=== PATIENT | male | born 1985 | race Caucasian/White ===

== ENCOUNTER 2018-01-21 12:24 | Emergency (ER) | payer OTHER ==
[~2018-01-21] VITALS: Ht 190.5 cm; Wt 86.2 kg
[~2018-01-21 12:24] MED LIST: ALBU90OI INH; AMOX500 PO; Allegra-D 24 H1 EACH PO; Augmentin 875-1 EACH PO; Bactrim Ds Tab1 EACH PO; CARB200ER PO; CEPH500 PO; CYCL10 PO; DIVA500EC PO; Flonase 0.05% N16 GM; HYDACE5 PO; IBUP800 PO; LORA1 PO; Monodox100 MG PO; NAPR500 PO; OXYACE5T PO; PENVK500 PO; PHENY100ER PO; SPACE CHAMBER1 EACH MC; SULTRIDS PO; SULTRISS PO
[2018-01-21] MEDS ORDERED: Zithromax250 MG PO (13:01)
[2018-01-21] MEDS ORDERED: ALBU90OI INH (13:01)
== END 2018-01-21 13:12 | disposition home or self-care (01) ==
LOC: ER 12:24
DX: J02.9 Acute pharyngitis, unspecified (principal); F17.210 Nicotine dependence, cigarettes, uncomplicated; Z79.899 Other long term (current) drug therapy
CPT/HCPCS: 71046; 87081; 87430; 96374; 99283; J1100

== ENCOUNTER 2018-02-02 20:28 | Emergency (ER) | payer OTHER ==
[~2018-02-02] VITALS: Ht 193 cm; Wt 86.2 kg
[~2018-02-02 20:28] MED LIST changes: +Zithromax250 MG PO
[2018-02-02] MEDS ORDERED: Sudogest60 MG PO (21:38)
[2018-02-02] MEDS ORDERED: TUSSIN DM COUG118 ML PO (21:38)
[2018-02-02] MEDS ORDERED: ALBU90OI INH (21:38)
== END 2018-02-02 21:50 | disposition home or self-care (01) ==
LOC: ER 20:28
DX: J02.9 Acute pharyngitis, unspecified (principal); F17.210 Nicotine dependence, cigarettes, uncomplicated
CPT/HCPCS: 71046; 99283

== ENCOUNTER 2018-03-23 12:44 | Emergency (ER) | payer OTHER ==
[~2018-03-23] VITALS: Ht 193 cm; Wt 83.9 kg
[~2018-03-23 12:44] MED LIST changes: +Sudogest60 MG PO; +TUSSIN DM COUG118 ML PO
== END 2018-03-23 13:34 | disposition home or self-care (01) ==
LOC: ER 12:44
DX: J02.9 Acute pharyngitis, unspecified (principal); F17.200 Nicotine dependence, unspecified, uncomplicated; G43.909 Migraine, unspecified, not intractable, without status migrainosus
CPT/HCPCS: 87081; 87430; 99283

== ENCOUNTER 2018-05-31 11:53 | Emergency (ER) | payer OTHER ==
[~2018-05-31] VITALS: Ht 193 cm; Wt 81.7 kg
[2018-05-31] MEDS ORDERED: Bactrim Ds Tab1 EACH PO (12:57)
== END 2018-05-31 13:03 | disposition home or self-care (01) ==
LOC: ER 11:53
DX: L08.9 Local infection of the skin and subcutaneous tissue, unspecified (principal); Z23 Encounter for immunization; F17.200 Nicotine dependence, unspecified, uncomplicated
CPT/HCPCS: 90471; 90714; 99282-25

== ENCOUNTER 2018-08-19 23:06 | Emergency (ER) | payer OTHER ==
[~2018-08-19] VITALS: Ht 190.5 cm; Wt 86.2 kg
[~2018-08-19 23:06] MED LIST changes: +IBUP400 PO
[2018-08-20 00:26] LABS: Source, Urine Clean Catch
[2018-08-20 00:28] LABS: Bilirubin, Urine Neg (Neg); Blood, Urine Neg (Neg); Glucose Qualitative, Urine Neg (Neg); Ketones, Urine Neg (Neg); Leukocyte Esterase, Urine Neg (Neg); Nitrite, Urine Neg (Neg); Protein, Urine Neg (Neg); Urobilinogen, Urine NORM (Normal)
[2018-08-20 00:32] LABS: Appearance, Urine Clear (Clear); Color, Urine Yellow (P-Yellow)
[2018-08-20 00:39] LABS: U Amphetamine Screen Not Detected; U Barbituate Screen Not Detected; U Benzodiazapine Screen Not Detected; U Buprenorphine Screen Not Detected; U Cannabinoids Screen DETECTED; U Cocaine Screen Not Detected; U Methadone Screen Not Detected; U Methamphetamine Screen Not Detected; U Opiates Screen Not Detected; U Oxycodone Screen Not Detected; U Phencyclidine Screen Not Detected; U Propoxyphene Screen Not Detected
[2018-08-20 00:50] LABS: BASOPHILS ABSOLUTE AUTO 0.03 K/mm3 (0.00-0.23); BASOPHILS PERCENT AUTO 0 % (0-2); EOSINOPHILS ABSOLUTE AUTO 0.19 K/mm3 (0.00-0.68); EOSINOPHILS PERCENT AUTO 3 % (0-6); Hematocrit 40.9 % (37.0-53.0); Hemoglobin 13.6 g/dL (13.5-17.5); IMMATURE GRAN ABSOLUTE AUTO 0.01 K/mm3 (0.00-0.10); IMMATURE GRAN PERCENT AUTO 0 % (0-1); LYMPHOCYTES ABSOLUTE AUTO 4.85 K/mm3 (0.84-5.20); LYMPHOCYTES PERCENT AUTO 65 % (21-46); MONOCYTES ABSOLUTE AUTO 0.92 K/mm3 (0.16-1.47); MONOCYTES PERCENT AUTO 12 % (4-13); Mean Corpuscular HGB 29.4 pg (26.0-34.0); Mean Corpuscular HGB Conc 33.3 g/dL (31.5-36.5); Mean Corpuscular Volume 88 fL (80-100); Mean Platelet Volume 10.2 fL (9.1-12.4); NEUTROPHILS ABSOLUTE AUTO 1.43 K/mm3 (1.96-9.15); NEUTROPHILS PERCENT AUTO 19 % (41-73); Platelet Count 260 K/mm3 (150-400); RDW Coefficient Variation 13.8 % (11.7-14.2); RDW Standard Deviation 44.8 fL (35.1-46.3); Red Blood Cell Count 4.63 M/mm3 (4.30-5.90); White Blood Cell Count 7.43 K/mm3 (4.00-11.30)
[2018-08-20 01:14] LABS: Alanine Aminotransfer (ALT/SGP 235 U/L (12-78); Albumin, Blood 3.8 g/dL (3.4-5.0); Albumin/Globulin Ratio 0.9 (0.8-1.8); Alk Phos 94 U/L (50-136); Anion Gap 6 mmol/L (6-16); Aspartate Aminotrans (AST/SGOT 140 U/L (12-37); Bilirubin, Total 0.5 mg/dL (0.1-1.0); Blood Urea Nitrogen 17 mg/dL (8-24); CO2, Blood 28 mmol/L (21-32); Calcium, Blood 8.6 mg/dL (8.5-10.1); Chloride, Blood 106 mmol/L (98-108); Creatinine, Blood 1.06 mg/dL (0.60-1.20); Ethanol (Alcohol), Blood, Med <3 mg/dL; Globulin, Blood 4.3 g/dL (2.2-4.0); Glomerular Filtration Rate >60 (60-); Glucose, Blood 87 mg/dL (70-99); Potassium, Blood 4.2 mmol/L (3.5-5.5); Salicylate 2.5 mg/dL (2.8-20.0); Sodium, Blood 140 mmol/L (136-145); Thyroxine (T4) 13.6 ug/dL (4.5-12.1); Total Protein, Blood 8.1 g/dL (6.4-8.2)
[2018-08-20 01:19] LABS: Acetaminophen, Random <2.0 ug/mL (10.0-30.0)
== END 2018-08-20 02:31 | disposition home or self-care (01) ==
LOC: ER 23:06
PROVIDERS: Emergency Medicine
DX: F23 Brief psychotic disorder (principal); G40.909 Epilepsy, unspecified, not intractable, without status epilepticus; F17.200 Nicotine dependence, unspecified, uncomplicated
CPT/HCPCS: 36415; 80053; 81003; 84436; 84443; 85025; 99284; G0480

== ENCOUNTER → 2019-01-02 | Outpatient (CLI) | payer OTHER | END | disposition home or self-care (01) | LOC: LAB SHORT 18:54 → LAB 18:54 | DX: L03.90 Cellulitis, unspecified (principal) | CPT/HCPCS: 87070; 87075; 87147; 87205 ==

== ENCOUNTER 2019-03-23 16:29 | Emergency (ER) | payer OTHER ==
[~2019-03-23] VITALS: Ht 193 cm; Wt 81.7 kg
[2019-03-23] MEDS ORDERED: CEPH500 PO (17:44)
[2019-03-23] MEDS ORDERED: Bactrim Ds Tab1 EACH PO (17:44)
== END 2019-03-23 18:05 | disposition home or self-care (01) ==
LOC: ER 16:29
DX: L02.415 Cutaneous abscess of right lower limb (principal); F17.200 Nicotine dependence, unspecified, uncomplicated; Z91.048 Other nonmedicinal substance allergy status
CPT/HCPCS: 99282

== ENCOUNTER 2019-03-30 10:50 | Emergency (ER) | payer OTHER ==
[~2019-03-30] VITALS: Ht 193 cm; Wt 85.3 kg
[2019-03-31] MEDS ORDERED: Bactrim Ds Tab1 EACH PO (20:31)
[2019-03-31] MEDS ORDERED: CEPH500 PO (20:31)
== END 2019-03-30 12:25 | disposition home or self-care (01) ==
LOC: ER 10:50
DX: F60.0 Paranoid personality disorder (principal); G40.909 Epilepsy, unspecified, not intractable, without status epilepticus; F17.200 Nicotine dependence, unspecified, uncomplicated
CPT/HCPCS: 99284

== ENCOUNTER 2019-03-30 20:28 | Emergency (ER) | payer OTHER ==
[~2019-03-30] VITALS: Ht 190.5 cm; Wt 81.7 kg
[2019-03-31] MEDS ORDERED: CEPH500 PO (20:31)
[2019-03-31] MEDS ORDERED: Bactrim Ds Tab1 EACH PO (20:31)
== END 2019-03-30 21:30 | disposition home or self-care (01) ==
LOC: ER 20:28
DX: L03.115 Cellulitis of right lower limb (principal); F15.129 Other stimulant abuse with intoxication, unspecified; F17.200 Nicotine dependence, unspecified, uncomplicated; Z91.048 Other nonmedicinal substance allergy status
CPT/HCPCS: 99283

== ENCOUNTER 2019-03-31 19:31 | Emergency (ER) | payer OTHER ==
[~2019-03-31] VITALS: Ht 193 cm; Wt 81.7 kg
[2019-03-31] MEDS ORDERED: Bactrim Ds Tab1 EACH PO (20:31)
[2019-03-31] MEDS ORDERED: CEPH500 PO (20:31)
== END 2019-03-31 20:45 | disposition home or self-care (01) ==
LOC: ER 19:31
DX: L03.115 Cellulitis of right lower limb (principal); L02.415 Cutaneous abscess of right lower limb; Z76.0 Encounter for issue of repeat prescription; F41.9 Anxiety disorder, unspecified; F17.200 Nicotine dependence, unspecified, uncomplicated; Z88.8 Allergy status to other drugs, medicaments and biological substances; Z91.048 Other nonmedicinal substance allergy status
CPT/HCPCS: 99283

== ENCOUNTER 2019-04-05 22:25 | Emergency (ER) | payer OTHER ==
[~2019-04-05] VITALS: Ht 193 cm; Wt 81.7 kg
== END 2019-04-06 00:19 | disposition home or self-care (01) ==
LOC: ER 22:25
DX: F15.10 Other stimulant abuse, uncomplicated (principal); Z59.0 Homelessness; G40.909 Epilepsy, unspecified, not intractable, without status epilepticus; F17.210 Nicotine dependence, cigarettes, uncomplicated
CPT/HCPCS: 99282

== ENCOUNTER 2019-06-01 18:14 | Emergency (ER) | payer OTHER ==
[~2019-06-01] VITALS: Ht 193 cm; Wt 81.7 kg
[2019-06-01 18:54] LABS: BASOPHILS ABSOLUTE AUTO 0.03 K/mm3 (0.00-0.23); BASOPHILS PERCENT AUTO 0 % (0-2); EOSINOPHILS ABSOLUTE AUTO 0.66 K/mm3 (0.00-0.68); EOSINOPHILS PERCENT AUTO 10 % (0-6); Hematocrit 41.4 % (37.0-53.0); Hemoglobin 13.9 g/dL (13.5-17.5); IMMATURE GRAN ABSOLUTE AUTO 0.01 K/mm3 (0.00-0.10); IMMATURE GRAN PERCENT AUTO 0 % (0-1); LYMPHOCYTES ABSOLUTE AUTO 3.03 K/mm3 (0.84-5.20); LYMPHOCYTES PERCENT AUTO 45 % (21-46); MONOCYTES ABSOLUTE AUTO 0.76 K/mm3 (0.16-1.47); MONOCYTES PERCENT AUTO 11 % (4-13); Mean Corpuscular HGB 30.8 pg (26.0-34.0); Mean Corpuscular HGB Conc 33.6 g/dL (31.5-36.5); Mean Corpuscular Volume 92 fL (80-100); Mean Platelet Volume 9.5 fL (9.1-12.4); NEUTROPHILS PERCENT AUTO 33 % (41-73); Platelet Count 270 K/mm3 (150-400); RDW Coefficient Variation 13.1 % (11.7-14.2); RDW Standard Deviation 44.5 fL (35.1-46.3); Red Blood Cell Count 4.52 M/mm3 (4.30-5.90); White Blood Cell Count 6.69 K/mm3 (4.00-11.30)
[2019-06-01 19:15] LABS: Alanine Aminotransfer (ALT/SGP 300 U/L (12-78); Albumin, Blood 3.6 g/dL (3.4-5.0); Albumin/Globulin Ratio 0.8 (0.8-1.8); Alk Phos 111 U/L (50-136); Anion Gap 6 mmol/L (6-16); Aspartate Aminotrans (AST/SGOT 200 U/L (12-37); Bilirubin, Total 0.4 mg/dL (0.1-1.0); Blood Urea Nitrogen 22 mg/dL (8-24); Bun/Creatinine Ratio 32.2 (12.0-20.0); CO2, Blood 26 mmol/L (21-32); Calcium, Blood 8.4 mg/dL (8.5-10.1); Chloride, Blood 107 mmol/L (98-108); Creatinine, Blood 0.68 mg/dL (0.60-1.20); Globulin, Blood 4.4 g/dL (2.2-4.0); Glomerular Filtration Rate >60 (60-); Glucose, Blood 108 mg/dL (70-99); Sodium, Blood 139 mmol/L (136-145)
== END 2019-06-01 21:48 | disposition home or self-care (01) ==
LOC: ER 18:14
PROVIDERS: Emergency Medicine
DX: R51 Headache (principal); F17.200 Nicotine dependence, unspecified, uncomplicated; Z91.048 Other nonmedicinal substance allergy status
CPT/HCPCS: 36415; 80053; 83690; 85025; 99284; A9270

== ENCOUNTER 2019-08-13 13:23 | Emergency (ER) | payer OTHER ==
[~2019-08-13] VITALS: Ht 193 cm; Wt 81.7 kg
[2019-08-13] MEDS ORDERED: CEPH500 PO (14:17)
[2019-08-13] MEDS ORDERED: Bactrim Ds Tab1 EACH PO (14:17)
== END 2019-08-13 14:37 | disposition home or self-care (01) ==
LOC: ER 13:23
DX: L03.011 Cellulitis of right finger (principal); F17.200 Nicotine dependence, unspecified, uncomplicated; Z91.09 Other allergy status, other than to drugs and biological substances
CPT/HCPCS: 99283

== ENCOUNTER 2020-02-09 01:21 | Emergency (ER) | payer OTHER ==
[~2020-02-09 01:21] MED LIST changes: +LEVE500 PO
[2020-02-09] MEDS ORDERED: Doxycycline Mo100 M1 PO (02:50)
[2020-02-18] MEDS ORDERED: AMOCLA875 PO (16:35)
[2020-02-18] MEDS ORDERED: IBUP800 PO (16:35)
== END 2020-02-09 01:52 | disposition left against medical advice (07) ==
LOC: ER 01:21
DX: Z53.21 Procedure and treatment not carried out due to patient leaving prior to being seen by health care provider (principal)

== ENCOUNTER 2020-02-09 02:21 | Emergency (ER) | payer OTHER ==
[~2020-02-09] VITALS: Ht 193 cm; Wt 81.7 kg
[2020-02-09] MEDS ORDERED: Doxycycline Mo100 M1 PO (02:50)
[2020-02-18] MEDS ORDERED: AMOCLA875 PO (16:35)
[2020-02-18] MEDS ORDERED: IBUP800 PO (16:35)
== END 2020-02-09 03:05 | disposition home or self-care (01) ==
LOC: ER 02:21
DX: K13.0 Diseases of lips (principal); F17.200 Nicotine dependence, unspecified, uncomplicated
CPT/HCPCS: 99283

== ENCOUNTER 2020-03-03 09:02 | Emergency (ER) | payer OTHER ==
[~2020-03-03] VITALS: Ht 190.5 cm; Wt 81.7 kg
[~2020-03-03 09:02] MED LIST changes: +AMOCLA875 PO; +Doxycycline Mo100 M1 PO
== END 2020-03-03 11:06 | disposition home or self-care (01) ==
LOC: ER 09:02
DX: S51.812D Laceration without foreign body of left forearm, subsequent encounter (principal); S51.811D Laceration without foreign body of right forearm, subsequent encounter; Z91.048 Other nonmedicinal substance allergy status; F17.200 Nicotine dependence, unspecified, uncomplicated

== ENCOUNTER 2020-04-14 11:48 | Emergency (ER) | payer OTHER ==
[~2020-04-14] VITALS: Ht 193 cm; Wt 81.7 kg
[2020-04-14] MEDS ORDERED: CEPH500 PO (12:31)
[2020-04-14] MEDS ORDERED: Mupirocin22 GM TOP (12:31)
[2020-04-14] MEDS ORDERED: Bactrim Ds Tab1 EACH PO (12:31)
== END 2020-04-14 12:39 | disposition home or self-care (01) ==
LOC: ER 11:48
DX: T23.161A Burn of first degree of back of right hand, initial encounter (principal); L03.113 Cellulitis of right upper limb; F17.210 Nicotine dependence, cigarettes, uncomplicated; X10.2XXA Contact with fats and cooking oils, initial encounter
CPT/HCPCS: 10060; 87070; 87075; 87147; 87205; 99283-25; A9270-GY

== ENCOUNTER 2020-04-28 14:40 | Emergency (ER) | payer OTHER ==
[~2020-04-28] VITALS: Ht 193 cm; Wt 81.7 kg
[~2020-04-28 14:40] MED LIST changes: +Mupirocin22 GM TOP
[2020-04-28] MEDS ORDERED: Bactrim Ds Tab1 EACH PO (15:00)
[2020-04-28] MEDS ORDERED: CEPH500 PO (15:00)
== END 2020-04-28 15:28 | disposition home or self-care (01) ==
LOC: ER 14:40
DX: L08.9 Local infection of the skin and subcutaneous tissue, unspecified (principal); F17.290 Nicotine dependence, other tobacco product, uncomplicated
CPT/HCPCS: 99283

== ENCOUNTER 2020-06-25 12:03 | Emergency (ER) | payer OTHER ==
[~2020-06-25] VITALS: Ht 190.5 cm; Wt 81.7 kg
[2020-06-25] MEDS ORDERED: CEPH500 PO (14:08)
[2020-06-25] MEDS ORDERED: IBUP600 PO (14:08)
[2020-06-25] MEDS ORDERED: Bactrim Ds Tab1 EACH PO (14:08)
== END 2020-06-25 14:30 | disposition home or self-care (01) ==
LOC: ER 12:03
DX: J34.0 Abscess, furuncle and carbuncle of nose (principal); F17.210 Nicotine dependence, cigarettes, uncomplicated
CPT/HCPCS: 99283

== ENCOUNTER 2020-08-28 03:15 | Emergency (ER) | payer OTHER ==
[~2020-08-28] VITALS: Ht 193 cm; Wt 81.7 kg
[~2020-08-28 03:15] MED LIST changes: +IBUP600 PO; +MULTI-VITAMIN1 EAC2 PO
== END 2020-08-28 04:57 | disposition home or self-care (01) ==
LOC: ER 03:15
DX: L03.211 Cellulitis of face (principal); K12.0 Recurrent oral aphthae; F17.200 Nicotine dependence, unspecified, uncomplicated
CPT/HCPCS: 99283; A9270

== ENCOUNTER 2020-09-08 09:29 | Emergency (ER) | payer OTHER ==
[~2020-09-08] VITALS: Ht 193 cm; Wt 81.7 kg
== END 2020-09-08 10:00 | disposition home or self-care (01) ==
LOC: ER 09:29
DX: S00.511A Abrasion of lip, initial encounter (principal); F17.210 Nicotine dependence, cigarettes, uncomplicated; X58.XXXA Exposure to other specified factors, initial encounter
CPT/HCPCS: 99282

== ENCOUNTER 2020-09-13 14:48 | Inpatient (IN) | payer OTHER ==
[~2020-09-13] VITALS: Ht 193 cm; Wt 75.8 kg
[2020-09-13 16:08] LABS: BASOPHILS ABSOLUTE AUTO 0.02 K/mm3 (0.00-0.23); BASOPHILS PERCENT AUTO 0 % (0-2); EOSINOPHILS PERCENT AUTO 0 % (0-6); Hemoglobin 12.9 g/dL (13.5-17.5); IMMATURE GRAN ABSOLUTE AUTO 0.08 K/mm3 (0.00-0.10); IMMATURE GRAN PERCENT AUTO 0 % (0-1); LYMPHOCYTES ABSOLUTE AUTO 2.39 K/mm3 (0.84-5.20); LYMPHOCYTES PERCENT AUTO 12 % (21-46); MONOCYTES ABSOLUTE AUTO 1.51 K/mm3 (0.16-1.47); MONOCYTES PERCENT AUTO 8 % (4-13); Mean Corpuscular HGB 29.9 pg (26.0-34.0); Mean Corpuscular HGB Conc 34.9 g/dL (31.5-36.5); Mean Corpuscular Volume 86 fL (80-100); Mean Platelet Volume 9.6 fL (9.1-12.4); NEUTROPHILS ABSOLUTE AUTO 15.28 K/mm3 (1.96-9.15); NEUTROPHILS PERCENT AUTO 79 % (41-73); Platelet Count 268 K/mm3 (150-400); RDW Standard Deviation 40.5 fL (35.1-46.3); Red Blood Cell Count 4.31 M/mm3 (4.30-5.90); White Blood Cell Count 19.28 K/mm3 (4.00-11.30)
[2020-09-13] MEDS ORDERED: FISH OIL 1,2001 EAC7 PO (18:57)
[2020-09-13 20:34] LABS: Alanine Aminotransfer (ALT/SGP 239 U/L (12-78); Albumin, Blood 4.1 g/dL (3.4-5.0); Albumin/Globulin Ratio 0.9 (0.8-1.8); Alk Phos 88 U/L (50-136); Anion Gap 5 mmol/L (6-16); Aspartate Aminotrans (AST/SGOT 180 U/L (12-37); Bilirubin, Total 0.9 mg/dL (0.1-1.0); Blood Urea Nitrogen 24 mg/dL (8-24); Bun/Creatinine Ratio 33.6 (12.0-20.0); CO2, Blood 24 mmol/L (21-32); Calcium, Blood 8.9 mg/dL (8.5-10.1); Chloride, Blood 98 mmol/L (98-108); Creatinine, Blood 0.72 mg/dL (0.60-1.20); Globulin, Blood 4.6 g/dL (2.2-4.0); Glomerular Filtration Rate >60 (60-); Glucose, Blood 86 mg/dL (70-99); Potassium, Blood 3.9 mmol/L (3.5-5.5); Sodium, Blood 127 mmol/L (136-145); Total Protein, Blood 8.7 g/dL (6.4-8.2)
[2020-09-14 01:56] LABS: U Amphetamine Screen DETECTED; U Barbituate Screen Not Detected; U Benzodiazapine Screen Not Detected; U Buprenorphine Screen Not Detected; U Cannabinoids Screen DETECTED; U Cocaine Screen Not Detected; U Methadone Screen Not Detected; U Methamphetamine Screen DETECTED; U Opiates Screen Not Detected; U Oxycodone Screen Not Detected; U Phencyclidine Screen Not Detected; U Propoxyphene Screen Not Detected
[2020-09-14 06:32] LABS: Hematocrit 38.4 % (37.0-53.0); Hemoglobin 13.3 g/dL (13.5-17.5); Mean Corpuscular HGB 30.2 pg (26.0-34.0); Mean Corpuscular HGB Conc 34.6 g/dL (31.5-36.5); Mean Corpuscular Volume 87 fL (80-100); Mean Platelet Volume 9.8 fL (9.1-12.4); Platelet Count 259 K/mm3 (150-400); RDW Coefficient Variation 13.3 % (11.7-14.2); RDW Standard Deviation 42.6 fL (35.1-46.3); White Blood Cell Count 14.15 K/mm3 (4.00-11.30)
[2020-09-16] MEDS ORDERED: CEPH500 PO (11:05)
== END 2020-09-16 11:36 | disposition home or self-care (01) | DRG 871 ==
LOC: ER 14:48 → MEDS 21:42
PROVIDERS: Emergency Medicine; Physician Assistant; ADMIT Internal Medicine
DX: A41.9 Sepsis, unspecified organism (principal); G92 Toxic encephalopathy; F17.210 Nicotine dependence, cigarettes, uncomplicated; K13.0 Diseases of lips; Z59.0 Homelessness; F20.9 Schizophrenia, unspecified
CPT/HCPCS: 36415; 70450; 70487; 80053; 83605; 85025; 85027; 85651; 86140; 87040; 90471; 96365-59; 99285-25; A9270; J0690; J7050; J7120; Q9967

== ENCOUNTER 2020-10-29 05:40 | Emergency (ER) | payer SELFPAY ==
[~2020-10-29] VITALS: Ht 193 cm; Wt 77.1 kg
[~2020-10-29 05:40] MED LIST changes: +FISH OIL 1,2001 EAC7 PO
[2020-10-29] MEDS ORDERED: Veetids 500500 MG PO (06:22)
== END 2020-10-29 06:35 | disposition home or self-care (01) ==
LOC: ER 05:40
DX: K08.89 Other specified disorders of teeth and supporting structures (principal); F17.210 Nicotine dependence, cigarettes, uncomplicated
CPT/HCPCS: 99283

== ENCOUNTER 2020-12-19 21:12 | Emergency (ER) | payer OTHER ==
[~2020-12-19] VITALS: Ht 193 cm; Wt 81.7 kg
[~2020-12-19 21:12] MED LIST changes: +Veetids 500500 MG PO
[2020-12-19] MEDS ORDERED: CEPH500 PO (23:13)
== END 2020-12-19 23:35 | disposition home or self-care (01) ==
LOC: ER 21:12
DX: L02.414 Cutaneous abscess of left upper limb (principal); L03.114 Cellulitis of left upper limb; F17.210 Nicotine dependence, cigarettes, uncomplicated
CPT/HCPCS: 99283; A9270

== ENCOUNTER 2022-06-23 03:08 | Emergency (ER) | payer OTHER ==
[~2022-06-23] VITALS: Ht 193 cm; Wt 87.1 kg
== END 2022-06-23 05:00 | disposition home or self-care (01) ==
LOC: ER 03:08
DX: K08.89 Other specified disorders of teeth and supporting structures (principal); F17.210 Nicotine dependence, cigarettes, uncomplicated
CPT/HCPCS: 99282

== ENCOUNTER 2022-12-31 16:13 | Emergency (ER) | payer OTHER ==
[~2022-12-31] VITALS: Ht 193 cm; Wt 81.7 kg
[2022-12-31 16:22] VITALS: BP 130/87
[2022-12-31] MEDS ORDERED: AMOCLA875 PO (17:40)
[2022-12-31] MEDS ORDERED: 1/2 NS 250ml250 ML (17:49)
== END 2022-12-31 17:50 | disposition home or self-care (01) ==
LOC: ER 16:13
DX: K04.7 Periapical abscess without sinus (principal); F17.210 Nicotine dependence, cigarettes, uncomplicated; G40.909 Epilepsy, unspecified, not intractable, without status epilepticus
CPT/HCPCS: A9270

== ENCOUNTER 2023-01-03 22:07 | Emergency (ER) | payer OTHER ==
[~2023-01-03] VITALS: Ht 177.8 cm; Wt 79.4 kg
[~2023-01-03 22:07] MED LIST changes: +1/2 NS 250ml250 ML
[2023-01-03 22:11] VITALS: BP 145/76
[2023-01-03] MEDS ORDERED: IBUP800 PO (22:41)
== END 2023-01-03 22:46 | disposition home or self-care (01) ==
LOC: ER 22:07
DX: K04.7 Periapical abscess without sinus (principal); F17.210 Nicotine dependence, cigarettes, uncomplicated
CPT/HCPCS: A9270

== ENCOUNTER 2023-02-28 00:58 | Emergency (ER) | payer OTHER ==
[~2023-02-28] VITALS: Ht 193 cm; Wt 81.7 kg
[2023-02-28 01:18] VITALS: BP 147/101
[2023-02-28] MEDS ORDERED: AMOCLA875 PO (01:58)
== END 2023-02-28 02:03 | disposition home or self-care (01) ==
LOC: ER 00:58
DX: M79.672 Pain in left foot (principal); G89.18 Other acute postprocedural pain; K08.89 Other specified disorders of teeth and supporting structures; G40.909 Epilepsy, unspecified, not intractable, without status epilepticus; F17.210 Nicotine dependence, cigarettes, uncomplicated
CPT/HCPCS: 99283

== ENCOUNTER 2024-05-07 07:34 | Emergency (ER) | payer OTHER ==
[~2024-05-07] VITALS: Ht 190.5 cm; Wt 72.6 kg
[~2024-05-07 07:34] MED LIST changes: +APHEN325 MG PO; +CEFP200 PO; +VISBIOME 112.51 EACH PO; +Vibramycin100 MG PO
[2024-05-07 07:46] VITALS: BP 121/88
== END 2024-05-07 08:40 | disposition home or self-care (01) ==
LOC: ER 07:34
DX: L02.212 Cutaneous abscess of back [any part, except buttock and flank] (principal)
CPT/HCPCS: 99283

== ENCOUNTER 2024-05-27 18:10 | Emergency (ER) | payer OTHER ==
[~2024-05-27] VITALS: Ht 190.5 cm; Wt 81.7 kg
[2024-05-27 19:08] VITALS: BP 121/78
[2024-05-27] MEDS ORDERED: SULTRIDS PO (19:34)
[2024-05-27] MEDS ORDERED: Trimethoprim/Sulfamethoxazole DS Tab PO ONE (19:35)
== END 2024-05-27 19:40 | disposition home or self-care (01) ==
LOC: ER 18:10
DX: K04.7 Periapical abscess without sinus (principal); L02.212 Cutaneous abscess of back [any part, except buttock and flank]; F17.210 Nicotine dependence, cigarettes, uncomplicated
CPT/HCPCS: 99282; A9270

== ENCOUNTER 2024-06-23 10:02 | Emergency (ER) | payer OTHER ==
[~2024-06-23] VITALS: Ht 193 cm; Wt 77.1 kg
[2024-06-23 10:43] VITALS: BP 140/80
== END 2024-06-23 10:48 | disposition home or self-care (01) ==
LOC: ER 10:02
DX: L02.212 Cutaneous abscess of back [any part, except buttock and flank] (principal); G40.909 Epilepsy, unspecified, not intractable, without status epilepticus; F17.210 Nicotine dependence, cigarettes, uncomplicated; Z59.89 Other problems related to housing and economic circumstances
CPT/HCPCS: 99282

== ENCOUNTER 2024-08-12 17:01 | Emergency (ER) | payer OTHER ==
[~2024-08-12] VITALS: Ht 193 cm; Wt 81.7 kg
[2024-08-12 17:06] VITALS: BP 143/95
== END 2024-08-12 18:49 | disposition left against medical advice (07) ==
LOC: ER 17:01
DX: L73.1 Pseudofolliculitis barbae (principal); Z53.21 Procedure and treatment not carried out due to patient leaving prior to being seen by health care provider
CPT/HCPCS: 99281

== ENCOUNTER 2024-08-21 05:16 | Emergency (ER) | payer OTHER ==
[~2024-08-21] VITALS: Ht 193 cm; Wt 81.7 kg
[2024-08-21] MEDS ORDERED: Trimethoprim/Sulfamethoxazole DS Tab PO ONE (06:45)
[2024-08-21] MEDS ORDERED: Ipratropium/Albuterol SulF 2.5-0.5MG/3 ML Amp INH ONE (06:45)
[2024-08-21 06:50] VITALS: BP 112/83
[2024-08-21] MEDS ORDERED: Bactrim Ds Tab1 EACH PO (08:07)
[2024-08-21] MEDS ORDERED: ALBU90OI INH (08:08)
== END 2024-08-21 08:19 | disposition home or self-care (01) ==
LOC: ER 05:16
DX: T69.9XXA Effect of reduced temperature, unspecified, initial encounter (principal); R06.2 Wheezing; L03.115 Cellulitis of right lower limb; F17.210 Nicotine dependence, cigarettes, uncomplicated
CPT/HCPCS: 71045; 94640; 94664; 99285-25; A9270

== ENCOUNTER 2024-09-01 14:16 | Emergency (ER) | payer OTHER ==
[~2024-09-01] VITALS: Ht 188 cm; Wt 95.2 kg
[2024-09-01 14:47] VITALS: BP 134/91
[2024-09-01 15:17] LABS: BASOPHILS ABSOLUTE AUTO 0.02 K/mm3 (0.00-0.23); BASOPHILS PERCENT AUTO 0 % (0-2); EOSINOPHILS ABSOLUTE AUTO 0.04 K/mm3 (0.00-0.68); EOSINOPHILS PERCENT AUTO 1 % (0-6); Hemoglobin 13.2 g/dL (13.5-17.5); IMMATURE GRAN ABSOLUTE AUTO 0.01 K/mm3 (0.00-0.10); IMMATURE GRAN PERCENT AUTO 0 % (0-1); LYMPHOCYTES ABSOLUTE AUTO 2.54 K/mm3 (0.84-5.20); LYMPHOCYTES PERCENT AUTO 43 % (21-46); MONOCYTES ABSOLUTE AUTO 0.75 K/mm3 (0.16-1.47); MONOCYTES PERCENT AUTO 13 % (4-13); Mean Corpuscular HGB 29.9 pg (26.0-34.0); Mean Corpuscular HGB Conc 33.8 g/dL (31.5-36.5); Mean Corpuscular Volume 88 fL (80-100); Mean Platelet Volume 9.2 fL (9.1-12.4); NEUTROPHILS ABSOLUTE AUTO 2.54 K/mm3 (1.96-9.15); NEUTROPHILS PERCENT AUTO 43 % (41-73); Platelet Count 273 K/mm3 (150-400); RDW Coefficient Variation 13.8 % (11.7-14.2); RDW Standard Deviation 44.8 fL (35.1-46.3); Red Blood Cell Count 4.42 M/mm3 (4.30-5.90)
[2024-09-01 15:40] LABS: Albumin, Blood 3.7 g/dL (3.4-5.0); Albumin/Globulin Ratio 0.7 (0.8-1.8); Bilirubin, Total 0.6 mg/dL (0.1-1.0); Bun/Creatinine Ratio 31.3 (12.0-20.0); Calcium, Blood 8.7 mg/dL (8.5-10.1); Creatinine, Blood 0.74 mg/dL (0.60-1.20); Globulin, Blood 5.1 g/dL (2.2-4.0); Total Protein, Blood 8.8 g/dL (6.4-8.2)
[2024-09-01] MEDS ORDERED: BENZ100A PO (16:47)
[2024-09-01] MEDS ORDERED: AMOX500 PO (16:47)
== END 2024-09-01 17:15 | disposition home or self-care (01) ==
LOC: ER 14:16
PROVIDERS: Physician Assistant
DX: J06.9 Acute upper respiratory infection, unspecified (principal); K04.7 Periapical abscess without sinus; G40.909 Epilepsy, unspecified, not intractable, without status epilepticus; F17.210 Nicotine dependence, cigarettes, uncomplicated
CPT/HCPCS: 71046; 80053; 85025; 93005; 93010; 99283-25

== ENCOUNTER 2024-11-08 21:27 | Emergency (ER) | payer OTHER ==
[~2024-11-08] VITALS: Ht 193 cm; Wt 81.7 kg
[~2024-11-08 21:27] MED LIST changes: +BENZ100A PO
[2024-11-08 21:38] VITALS: BP 101/71
[2024-11-08] MEDS ORDERED: Trimethoprim/Sulfamethoxazole DS Tab PO ONE (22:40)
[2024-11-08] MEDS ORDERED: Cephalexin Monohydrate 500 MG Cap PO ONE (22:40)
[2024-11-08] MEDS ORDERED: BACTRIM DS TAB1 EAC1 PO (22:42)
[2024-11-08] MEDS ORDERED: CEPH500 PO (22:42)
== END 2024-11-08 22:52 | disposition home or self-care (01) ==
LOC: ER 21:27
DX: L03.115 Cellulitis of right lower limb (principal); L03.116 Cellulitis of left lower limb; Z79.2 Long term (current) use of antibiotics; Z79.899 Other long term (current) drug therapy; F17.200 Nicotine dependence, unspecified, uncomplicated
CPT/HCPCS: 99282; A9270

== ENCOUNTER 2025-04-13 23:55 | Emergency (ER) | payer OTHER ==
[~2025-04-13] VITALS: Ht 193 cm; Wt 54.4 kg
[~2025-04-13 23:55] MED LIST changes: +BACTRIM DS TAB1 EAC1 PO
[2025-04-14 00:07] VITALS: BP 131/82
[2025-04-14] MEDS ORDERED: BACTRIM DS TAB1 EAC1 PO (00:29)
[2025-04-14] MEDS ORDERED: Trimethoprim/Sulfamethoxazole DS Tab PO ONE (00:30)
== END 2025-04-14 00:49 | disposition home or self-care (01) ==
LOC: ER 23:55
DX: L03.031 Cellulitis of right toe (principal); L03.115 Cellulitis of right lower limb; Z79.899 Other long term (current) drug therapy; Z79.2 Long term (current) use of antibiotics; F17.210 Nicotine dependence, cigarettes, uncomplicated
CPT/HCPCS: 99283; A9270

== ENCOUNTER 2025-05-11 01:54 | Emergency (ER) | payer OTHER ==
[~2025-05-11] VITALS: Ht 182.9 cm; Wt 83.9 kg
[2025-05-11] MEDS ORDERED: CEPH500 PO (02:26)
== END 2025-05-11 02:43 | disposition home or self-care (01) ==
LOC: ER 01:54
DX: L03.116 Cellulitis of left lower limb (principal); F19.90 Other psychoactive substance use, unspecified, uncomplicated; Z79.899 Other long term (current) drug therapy; F17.210 Nicotine dependence, cigarettes, uncomplicated; G40.909 Epilepsy, unspecified, not intractable, without status epilepticus
CPT/HCPCS: 99283

== ENCOUNTER 2025-05-27 13:38 | Emergency (ER) | payer OTHER ==
[~2025-05-27] VITALS: Ht 190.5 cm; Wt 86.2 kg
[2025-05-27 13:42] VITALS: BP 124/101
[2025-05-27] MEDS ORDERED: SULTRIDS PO (13:48)
== END 2025-05-27 13:48 | disposition home or self-care (01) ==
LOC: ER 13:38
DX: L03.116 Cellulitis of left lower limb (principal); F17.210 Nicotine dependence, cigarettes, uncomplicated; Z79.2 Long term (current) use of antibiotics; Z79.899 Other long term (current) drug therapy
CPT/HCPCS: 99283